=== PATIENT | female | born 1990 | race Caucasian/White ===

== ENCOUNTER 2020-09-02 11:22 | Emergency (ER) | payer OTHER, SELFPAY ==
[2020-09-02 11:30] VITALS: BP 111/57; PULSE 92; RESP 16; TEMP 36.7; O2SAT 92
--- NOTE | 2020-09-02 12:01 | ED.URI ---
HPI - URI/Sore Throat General Chief Complaint: Upper Respiratory Infection Stated Complaint: sore throat Time Seen by Provider: 09/02/20 12:01 Source: patient and RN notes reviewed Mode of arrival: ambulatory Limitations: no limitations History of Present Illness HPI Narrative: 30-year-old female who is 16 weeks presents to the [facility] with complaints of sore throat that was sudden onset last night. Denies fevers. States that it is extremely sore to swallow, drink. Has enlarged lymph nodes. Lung sounds clear to auscultation. States that her child is sick at home With a runny nose and cold symptoms. Related Data Home Medications Medication Instructions Recorded Confirmed PNV cmb#95-ferrous fumarate-FA 1 tablet PO DAILY MDD 1 01/16/19 09/02/20 [] ondansetron HCl 4 mg PO PRN PRN 09/02/20 09/02/20 Allergies Allergy/AdvReac Type Severity Reaction Status Date / Time Sulfa (Sulfonamide Allergy Intermediate Hives Verified 09/02/20 11:53 Antibiotics) sulfamethoxazole Allergy Intermediate Hives Verified 09/02/20 11:53 [From Bactrim] trimethoprim [From Bactrim] Allergy Intermediate Hives Verified 09/02/20 11:53 Review of Systems Review of Systems: All systems reviewed & are unremarkable except as noted in HPI and below Constitutional: Constitutional: Reports no additional constitutional complaints, Denies chills and Denies fever(s) Eyes: Eyes: Reports no additional eye complaints and Denies change in vision ENT: Reports as per HPI, Denies dizziness, Denies nasal congestion and Reports sore throat Cardiovascular: Cardiovascular: Reports no additional cardiovascular complaints and Denies chest pain Respiratory: Respiratory: Reports no additional respiratory complaints, Denies chest congestion, Denies cough, Denies dyspnea and Denies wheezing Gastrointestinal: Gastrointestinal: Reports no additional gastrointestinal complaints, Denies abdominal pain, Denies diarrhea, Reports nausea (Has nausea every morning, ) and Denies vomiting Genitourinary: Genitourinary: Reports no additional female genitourinary complaints Musculoskeletal: Musculoskeletal: Reports no additional musculoskeletal complaints and Denies back pain Integumentary/Breasts: Skin/Breast: Reports system reviewed and no additional complaints, except as docu Neurologic: Reports system reviewed and no additional complaints, except as documented Hematologic/Lymphatic: Hematologic/Lymphatic: Reports no additional hematologic/lymphatic complaints PMFSH Family History Family History (Updated 01/16/19 @ 13:58 by Junior Castillo RN) Grandparent Colon cancer Lung cancer Social History Social History Smoking status: Never smoker Second hand tobacco smoke exposure: No Substance use: never Gender identity (if verbalized by the patient): Female Spiritual care concerns: No Comments At the time of my signature, I reviewed and agree with the nursing past medical, surgical, social, and family history. There is no relevant family history pertinent to the patient complaint. Exam Const: General: healthy appearing, no acute distress and alert Nutritional Appearance: well nourished Orientation/consciousness: patient oriented x3 Limitations: no limitations HENMT: Head: normal to inspection Ears: hearing grossly normal bilaterally, external ears normal, TM's normal bilaterally and EAC's normal General nose exam: Normal external nose present, Normal nares present and Normal nasal mucous membranes and turbinates present Face and sinus: normal facial exam, sinuses nontender and face symmetric Mouth: Yes Normal oral and palatal mucosa present, Yes lip normal, Yes tongue normal, Yes oropharynx normal and Yes moist mucous membranes Teeth and gingiva: dentition normal Throat: posterior oropharynx normal, uvula midline and abnormal tonsil bilateral (+2) erythema and exudates Eyes: Conjunctivae: conjunctivae normal Pupils:
== END 2020-09-02 12:27 | disposition home or self-care (01) ==
PROVIDERS: Emergency Provider Nurse Practitioner
DX: J02.9 Acute pharyngitis, unspecified (principal)
CPT/HCPCS: 87081; 87880; 99213; G0463

== ENCOUNTER 2021-02-09 14:02 | Inpatient (IN) | payer OTHER, SELFPAY ==
[2021-02-09] VITALS (64 sets, daily range): BP systolic 102–141; BP diastolic 64–97; PULSE 68–117; TEMP 37.1; O2SAT 96–100; BMI 31.8
--- NOTE | 2021-02-09 18:36 | PC.NURSE ---
Unable to document FHM tracing due to OBIX encounter being discharged, unable to open encounter with the 2nd active encounter. Tracing available in OBIX. FHTs 5798-7830 120, moderate variability, accelerations, absent decelerations. Contractions q 4.5-5mins x 70-90sec. SVE 1421 3.5cm/70%/-1. 1440 pt up to ambulate. 1518 pt on the birthing ball, placed back on EFM. FHTs 7357-2564 135, moderate variability, accelerations present, absent decelerations. Contractions q 2-7mins x 60-70sec moderate palpation, soft resting tone. Pt up to ambulate at 1544. 1611 pt back on the birthing ball [id number] FHTs 135 moderate variability, accelerations present, absent decels. Contractions 4-7mins x 50-90sec. 1707 pt ambulating. [id number] FHTs 135 moderate variability, accelerations present, absent decels. See OBIX documentation.
--- NOTE | 2021-02-09 18:38 | LDADM ---
This patient, Elana Carlos, was admitted to Labor/Delivery/Recovery 106 on 02/09/21 at 14:02. Plans for labor, pain management and were discussed with patient. Patient/family oriented to hospital policies and general routines including ID bracelet, bed and alarms, visiting hours, pain management, procedures, bathroom and other care routines, personal items, smoking policy, room service/diet and guest tray routines, security routines, and visiting hours. Patient/Family are encouraged to report perceived risks to care and to ask questions if they do not understand what they are told or what they should do. See OBIX for further documentation.
[2021-02-09 19:27] LABS: Basophils Percent Auto 0.4 % (0.2-1.2); Eosinophils Percent Auto 0.1 % (0-4.4); Hematocrit 34.3 % (37.0-47.0); Hemoglobin 12.1 g/dL (12.0-15.0); Immature Granulocyte Absolute 0.08 K/mm3 (0.00-0.031); Immature Granulocyte Percent A 0.7 % (0-0.5); Lymphocytes Absolute Auto 2.23 K/mm3 (0.9-3.2); Lymphocytes Percent Auto 19.8 % (18.3-44.2); Mean Corpuscular HGB Conc 35.3 g/dl (32-36); Mean Corpuscular Hemoglobin 32.4 pg (26-34); Mean Corpuscular Volume 91.7 fl (80-100); Mean Platelet Volume 10.3 fl (7.4-10.4); Monocytes Percent Auto 8.6 % (2.6-8.5); Neutrophils Percent Auto 70.4 % (45.5-73.1); Platelet Count Result 192 k/mm3 (150-375); Red Blood Count 3.74 M/mm3 (4.2-5.4); Red Cell Distribution Width 12.7 % (11.5-14.5); White Blood Count 11.3 K/mm3 (4.5-10.0)
[2021-02-09] MEDS: LACTATED RINGERS 1,000 ML 125 ML IV CONT ×2 (20:28→21:28)
--- NOTE | 2021-02-09 21:12 | WPDANESEPPF ---
Anes - Initial Pre Proc Eval Procedure: labor epidural Date/Time: 02/09/21 20:49 Surgeon: Padilla Vasquez MD Pre Op Diagnosis: labor pain Pre Op Diagnosis: contractions Patient Data Age: 30 Gender: F Height: 1.63 m Weight: 84 kg Last Vital Signs Pulse 107 H 02/09/21 21:08 BP 115/82 02/09/21 21:10 Pulse Ox 99 02/09/21 21:11 Allergies Allergy/AdvReac Type Severity Reaction Status Date / Time Sulfa (Sulfonamide Allergy Intermediate Hives Verified 02/09/21 19:22 Antibiotics) sulfamethoxazole Allergy Intermediate Hives Verified 02/09/21 19:22 [From Bactrim] trimethoprim [From Bactrim] Allergy Intermediate Hives Verified 02/09/21 19:22 Home Medications Medication Instructions Recorded Confirmed Type PNV cmb#95-ferrous fumarate-FA 1 tablet PO DAILY MDD 1 01/16/19 01/19/21 History [] Laboratory Tests 02/09/21 02/09/21 02/09/21 19:15 19:15 19:15 WBC 11.3 K/mm3 H K/mm3 (4.5-10.0) RBC 3.74 M/mm3 L M/mm3 (4.2-5.4) Hgb 12.1 g/dL g/dL (12.0-15.0) Hct 34.3 % L % (37.0-47.0) MCV 91.7 fl fl (80-100) MCH 32.4 pg pg (26-34) MCHC 35.3 g/dl g/dl (32-36) RDW 12.7 % % (11.5-14.5) Plt Count 192 k/mm3 k/mm3 (150-375) MPV 10.3 fl fl (7.4-10.4) Immature Gran % (Auto) 0.7 % H % (0-0.5) Neut % (Auto) 70.4 % % (45.5-73.1) Lymph % (Auto) 19.8 % % (18.3-44.2) Dickey % (Auto) 8.6 % H % (2.6-8.5) Eos % (Auto) 0.1 % % (0-4.4) Baso % (Auto) 0.4 % % (0.2-1.2) Lymph # (Auto) 2.23 K/mm3 K/mm3 (0.9-3.2) Dickey # (Auto) 1.0 K/mm3 H K/mm3 (0.1-0.6) Eos # (Auto) 0.0 K/mm3 K/mm3 (0-0.3) Baso # (Auto) 0.0 K/mm3 K/mm3 (0.0-0.1) Abs Immat Gran (auto) 0.08 K/mm3 H K/mm3 (0.00-0.031) Absolute Neuts (auto) 8.0 K/mm3 H K/mm3 (1.3-6.7) Absolute Nucleated RBC 0.0 K/mm3 K/mm3 (0.0-0.012) Nucleated RBC % 0.0 % % (0.0-0.2) RPR Pending Blood Type A Positive Antibody Screen Negative Patient hx anesthesia problems: none Family hx anesthesia problems: none Results Review: All pre-operative results and documents have been reviewed as part of the pre-operative evaluation. [facility] Family History Family History Grandparent Colon cancer Lung cancer Social History Social History Smoking status: Never smoker Second hand tobacco smoke exposure: No Substance use: never Gender identity (if verbalized by the patient): Female Spiritual care concerns: No Anes - Eval Final PreProcedure Day of Procedure 02/09/21 21:12 Patient weight: obese Heart: regular rate and rhythm Lungs: clear to auscultation and normal air movement Airway: Mallampati scale class 1 Neurological: alert and oriented ASA classification: II Anesthetic plan: proceed Anesthesia type and monitoring: regional epidural and standard monitoring Results Review: All pre-operative results and documents have been reviewed as part of the pre-operative evaluation. Informed Consent: The patient's anesthetic plan and its attendant risks and benefits were discussed with the patient/family/POA. Questions were solicited and answers provided to the satisfaction of the patient/family/POA.
[2021-02-10] VITALS (137 sets, daily range): BP systolic 93–137; BP diastolic 55–83; PULSE 60–110; RESP 16–18; TEMP 36.5–37.1; O2SAT 96–100
[2021-02-10] MEDS: LACTATED RINGERS 1,000 ML 125 ML IV CONT (00:49)
[2021-02-10] MEDS: OXYTOCIN 30 UNITS/NS 500 ML 30 UNITS/500 ML BAG 125 UNITS IV CONT ×2 (06:28→08:39)
--- NOTE | 2021-02-10 08:18 | P.PCNOB_ITS ---
OB - Delivery Note Procedure Procedure: Patient pushed for a spontaneous vaginal delivery. The fetus was delivered atraumatically and placed on the maternal abdomen. The cord was clamped and cut after 1 minute of life. The cord was double clamped and cut and a segment of cord was collected for cord gases. Cord blood was collected for blood type and Coomb's testing. The placenta delivered spontaneously and was noted to be intact. The perineum was inspected and there was a 2nd degree perineal laceration. The laceration was repaired with 2-0 vicryl in the usual fashion. The uterus was firm and good hemostasis was noted. The patient and fetus were stable in the delivery room. Intrapartal events: None Delivery monitor: external FHT Route of delivery: Episiotomy description: None Laceration Description: Perineal - 2nd Degree Delivery repair: vicryl Specimen: No Quantitative Blood Loss (ml): 200 Anesthesia type: Epidural Disposition: floor () Complications: No immediate complications [place] Baby Date of : 02/10/21 Time of : 08:05 Weeks of gestation at delivery: 39 Infant gender: Male Weight (pounds): 7 Weight (ounces): 8 presentation: vertex position: Right Occiput Anterior Placenta delivery description: Spontaneous cord vessel description: 3 Vessels score one minute: 9 score five minutes: 9
--- NOTE | 2021-02-10 08:18 | WPDHPUPDATE1 ---
History and Physical Update Update Date/Time: 02/10/21 08:18 30 yo at 39w1. 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 History and Physical has been reviewed, including an updated exam of the patient. There are NO changes in the patient's condition. Risks, benefits, and alternatives have been discussed and questions answered. Patient agrees to proceed with procedure.
[2021-02-10] MEDS: IBUPROFEN 600 MG TABLET (09:09)
[2021-02-10] MEDS: WITCH HAZEL 40 PADS 1 PAD TOPICAL (10:19)
[2021-02-10] MEDS: BENZOCAINE 20% AER SPR (*SP) 56 GM CAN 1 SPRAY TOPICAL (10:19)
--- NOTE | 2021-02-10 12:15 | PC.NURSE ---
Consult with pt., mother reports is eagerly feeding with slight tenderness. This is mother?s 2nd child to breastfeed. Reviewed feeding cues, frequencies, duration of feedings, feeding elimination flow sheet, and signs of adequate intake. Demonstrated stimulation techniques to wake for feeding. Nipple care reviewed of lanolin after feedings and warm compresses as needed. Requested mother to call out for RN/LC assistance next feeding to assess latch due reported nipple tenderness. Instructed feeding should be initiated three hours from start of last feeding or if feeding cues are noted before. Mother voiced understanding of information shared.
--- NOTE | 2021-02-10 12:15 | WPDOBADMIT ---
Obstetrics - Admit Note Admission Note: record reviewed. Additions to the history and/or subsequent changes in the physical findings follow. 30 y/o at 39 1/7 weeks here with contractions. Admitted with diagnosis of labor. AVSS NST reactive TOCO: contractions every 2-3 min Cervix 4-5 / 80 / -2 at time of admission. A: IUP at term with labor. P: See delivery note.
--- NOTE | 2021-02-10 12:16 | PM.OBDSVD ---
DS: Admitting Diagnosis Discharge Date 02/11/21 Admitting Diagnosis IUP at term Labor DS: Discharge Diagnosis Discharge Diagnosis (1) (normal spontaneous vaginal delivery): Code(s): O80 - Encounter for full-term uncomplicated delivery Status: Acute OB - DS: Summary OB Procedures : None OB Procedures Intrapartum: Spontaneous Vag Delivery OB Procedures: : None DS: Data Data Completed and Pending Labs on day of discharge: Labs from last 24 hours 02/09/21 02/09/21 02/09/21 19:15 19:15 19:15 WBC 11.3 H RBC 3.74 L Hgb 12.1 Hct 34.3 L MCV 91.7 MCH 32.4 MCHC 35.3 RDW 12.7 Plt Count 192 MPV 10.3 Immature Gran % (Auto) 0.7 H Neut % (Auto) 70.4 Lymph % (Auto) 19.8 [place]pton % (Auto) 8.6 H Eos % (Auto) 0.1 Baso % (Auto) 0.4 Lymph # (Auto) 2.23 [place] # (Auto) 1.0 H Eos # (Auto) 0.0 Baso # (Auto) 0.0 Abs Immat Gran (auto) 0.08 H Absolute Neuts (auto) 8.0 H Absolute Nucleated RBC 0.0 Nucleated RBC % 0.0 RPR Pending Blood Type A Positive Antibody Screen Negative Discharge Plan Discharge Attending physician on discharge: Padilla Vasquez Discharging Clinician: Padilla Vasquez Patient Disposition: Home, Self-Care Activity: pelvic rest Diet: regular Discharge Instructions: Call or return if temperature above 100.4? F, increased abdominal pain, increased vaginal bleeding or any new problems. Education: Mom and Baby Guide Given to: Mother Follow-Up: Call your delivering provider's office for an appointment to be seen in: 6 Weeks Mom and baby should come to the [facility] for the follow-up appointment. Appointment Date/Time: February 13, 2021 at 9:00 am What to expect at your follow-up visit: Physical Assessment Call [phone] if you are unable to keep your appointment time. BREAST CARE: * Wear a snug supportive bra. * For engorgement discomfort: Breast Feeding: * Apply warm moist washcloths * Express milk as needed to relieve engorgement * Wear loose clothing * For sore nipples: * Identify correct latch-on * Apply warm moist washcloths before and after nursing * Air dry nipples after nursing * May apply Lansinoh cream to nipples PERINEAL CARE: * Until bleeding stops, use your dayna bottle after urinating * Change your pad frequently throughout the day * You may take sitz baths several times a day (fill your bathtub with warm water and soak for 20 minutes.) Do NOT bathe in the water * No tub baths until seen by your physician - You may shower ACTIVITY: * Rest as much as possible. * Do not exercise or lift anything heavier than your baby (such as laundry or other children.) * Avoid stairs or driving as much as possible. * Do not put anything into the vagina. No douching, tampons, or sexual activity until seen by physician. NOTIFY PHYSICIAN IF YOU HAVE ANY QUESTIONS OR IF ANY OF THE FOLLOWING SYMPTOMS OCCUR: * If your perineum becomes red, swollen, or more painful than what you have experienced in the hospital. * If your vaginal bleeding becomes foul smelling. * If your vaginal bleeding becomes more heavy than a period or if your bleeding changes from pink to bright red. However, you may pass an occasional walnut-sized clot once or twice for the first week . * If you experience a sharp, shooting pain in you calves. * If you discover a hard, reddened area on your breast or if you experience flu-like symptoms. DIET: * Eat regular, well-balanced meals. * Drink plenty of fluids daily. If , drink to thirst. Stand Alone Forms: General Discharge Information Follow-up/Referrals: Padilla Vasquez MD [Physician] - 6 Weeks Discharge Medications: New ibuprofen 600 mg tablet 600 mg PO Q6H PRN (Reason: cramps) Qty: 30 RF: 0 Continued PNV cmb#95-ferrous fumarate-FA [Pr
[2021-02-10 12:37] LABS: Rapid Plasma Reagin Non-Reactive (NonReactive)
--- NOTE | 2021-02-10 14:40 | PC.NURSE ---
Mother called out for assist with feeding. Infant is able to freely thrust tongue past gum ridge and flange both lips. Skin is intact on both nipples, no redness and bruising noted. Reviewed feeding cues, frequencies, duration of feedings, feeding elimination flow sheet, and signs of adequate intake. Demonstrated stimulation techniques to wake for feeding. Assisted with infant to breast. Reviewed positioning/alignment in cross cradle, holding breast in ?U? hold and guided asymmetrical latch on. Reviewed rational for each. able to latch correctly within a few attempts. Infant nursed eagerly with steady draws and occasional swallowing noted, some pausing noted. Reviewed signs of a correct latch, effective nursing and suck swallow ratio. Suggested mother stimulate while feeding to increase stimulation for milk supply, for increased intake and to assist with maintaining deep latch. was able to maintain latch without discomfort to mother. Infant would slip to shallow latch causing tenderness. Demonstrated how to adjust latch more deeply while feeding as needed. Mother reports she can feel the difference in latch with no tenderness. Advised to hold breast during entire feeding to assist with maintaining deep latch. Nipple care reviewed of lanolin after feedings, warm compresses as needed. Instructed mother to call out for RN assistance if she is unable to latch infant for feeding or she has discomfort with nursing. Instructed feeding should be initiated three hours from start of last feeding or if feeding cues are noted before. Mother voiced understanding of information
[2021-02-10] MEDS: IBUPROFEN 600 MG TABLET PO (17:01)
[2021-02-10] MEDS: ACETAMINOPHEN 325 MG TABLET 650 MG PO (22:16)
[2021-02-11] VITALS: BP 127/71; PULSE 64; RESP 18; TEMP 36.9
[2021-02-11 04:24] VITALS: BP 115/70; PULSE 66; RESP 18; TEMP 36.9
[2021-02-11 04:50] LABS: Hematocrit 30.4 % (37.0-47.0); Hemoglobin 10.7 g/dL (12.0-15.0)
[2021-02-11 08:45] VITALS: BP 115/69; PULSE 68; RESP 20; TEMP 36.7
[2021-02-11] MEDS: ACETAMINOPHEN 325 MG TABLET 650 MG PO (10:48)
[2021-02-11] MEDS: MULTIVIT/MIN/PREN/FOL AC/IRON TABLET 1 TAB PO (10:48)
[2021-02-13 08:59] VITALS: BP 134/86; PULSE 66; RESP 20; TEMP 37; O2SAT 99
--- NOTE | 2021-02-17 14:48 | PM.EVENT ---
Event Note Event Note Event Note: Biopsy performed on 02/09/21
== END 2021-02-11 11:19 | disposition home or self-care (01) | DRG 807 ==
LOC: ANHOB2 02-11 10:36 → ANHLDR 02-14 07:24 → ANHOB2 02-14 07:24
PROVIDERS: Admitting Provider Obstetrics & Gynecology; Visit Provider Student in an Organized Health Care Education/Training Program
DX: O70.1 Second degree perineal laceration during delivery (principal); Z37.0 Single live birth; Z3A.39 39 weeks gestation of pregnancy; Z14.1 Cystic fibrosis carrier
CPT/HCPCS: 36415; 85014; 85018; 85025; 86592; 86850; 86900; 86901; A9270; J0690; J2590; J2795; J7120

== ENCOUNTER 2021-11-30 10:37 | Emergency (ER) | payer OTHER, SELFPAY ==
--- NOTE | 2021-11-30 10:44 | ED.EYEPROB ---
HPI - Eye Problem General Chief complaint: Eye Problems Stated complaint: red area on eyelid Time Seen by Provider: 11/30/21 10:44 Source: patient and RN notes reviewed Mode of arrival: ambulatory Limitations: no limitations History of Present Illness HPI Narrative: 31-year-old female with a stye to the left eye lower lid medial aspect half weeks. On Saturday did a teleconference call with the provider and was prescribed erythromycin to apply. States it has not gotten any better. Has not followed up with an eye doctor. Swelling noted to the lower lid medial aspect. No surrounding erythema. No vision changes. Related Data Home Medications Medication Instructions Recorded Confirmed vit no.95-ferrous 1 tablet PO DAILY 01/16/19 11/30/21 fumarate 28 mg-folic acid 800 mcg tablet () Allergies Allergy/AdvReac Type Severity Reaction Status Date / Time Sulfa (Sulfonamide Allergy Intermediate Hives Verified 11/30/21 10:52 Antibiotics) sulfamethoxazole Allergy Intermediate Hives Verified 11/30/21 10:52 [From Bactrim] trimethoprim [From Bactrim] Allergy Intermediate Hives Verified 11/30/21 10:52 Review of Systems Review of Systems: All systems reviewed & are unremarkable except as noted in HPI and below Constitutional: Constitutional: Reports no additional constitutional complaints, Denies chills and Denies fever(s) Eyes: Eyes: Reports as per HPI, Denies change in vision and Denies photophobia ENT: Reports system reviewed and no additional complaints, except as documented Cardiovascular: Cardiovascular: Reports no additional cardiovascular complaints Respiratory: Respiratory: Reports no additional respiratory complaints Gastrointestinal: Gastrointestinal: Reports no additional gastrointestinal complaints Musculoskeletal: Musculoskeletal: Reports no additional musculoskeletal complaints Integumentary/Breasts: Skin/Breast: Reports system reviewed and no additional complaints, except as docu Neurologic: Reports system reviewed and no additional complaints, except as documented Psychiatric: Psychiatric: Reports no additional psychiatric complaints Allergic/Immunologic: Allergic/Immunologic: Reports no additional allergic/immunologic complaints [facility] Family History Family History Grandparent Colon cancer Lung cancer Social History Social History Smoking status: Never smoker Second hand tobacco smoke exposure: No Substance use: never Gender identity (if verbalized by the patient): Female Spiritual care concerns: No Comments At the time of my signature, I reviewed and agree with the nursing past medical, surgical, social, and family history. There is no relevant family history pertinent to the patient complaint. Exam Const: General: healthy appearing, no acute distress and alert Nutritional Appearance: well nourished Orientation/consciousness: patient oriented x3 Limitations: no limitations HENMT: Head: normal to inspection Ears: external ears normal General nose exam: Normal external nose present Eyes: General: appearance normal, both eyes and all related structures Eyelids: eyelid abnormality left lower eyelid inflamed cyst external lid; without erythema, with no foreign bodies, without lacerations, no crusting or scaling of lid margins and without swelling Conjunctivae: conjunctivae normal Pupils: Equal, round and reactive pupils present Neck: Neck: normal visual inspection, no lymphadenopathy and no meningeal signs Chest: Chest palpation & inspection: normal inspection of the chest Resp: Effort & Inspection: normal respiratory effort and no use of accessory muscles Auscultation: clear to auscultation bilaterally, no crackles, no rales, no rhonchi and no wheezes Cardio: Rate: regular rate Rhythm: regular rhythm Back/Spine/Pelvis: Cervical Spine: nor
[2021-11-30 10:53] VITALS: BP 117/85; PULSE 69; RESP 16; TEMP 37; O2SAT 100
== END 2021-11-30 10:56 | disposition home or self-care (01) ==
PROVIDERS: Emergency Provider Nurse Practitioner
DX: H00.015 Hordeolum externum left lower eyelid (principal)
CPT/HCPCS: 99213; G0463